=== PATIENT | male | born 1965 | race Caucasian/White ===

== ENCOUNTER 2021-02-10 09:59 | Observation (INO) | payer OTHER ==
[~2021-02-10] VITALS: Ht 182.9 cm; Wt 99.0 kg
--- NOTE | 2021-02-10 09:59 | NUR ---
PATIENT TO ROOM 14 VIA WHEELCHAIR WITH [facility] STAFF. BEDSIDE TRIAGE COMPLETED. [facility] COMPLETED. STROKE ALERT CALLED
[2021-02-10 10:37] LABS: HEMATOCRIT 47.4 % (39.0-50.0); HEMOGLOBIN 15.5 g/dl (14.0-18.0); IMMATURE GRANULOCYTES 0.1 % (0.0-5.0); MEAN CELL VOLUME 86.3 fL CALC (80.0-100.0); MEAN CORPUSCULAR HGB 28.2 pG CALC (26.0-32.0); MEAN CORPUSCULAR HGB CONC 32.7 g/dL CAL (32.0-36.0); NEUT# 8.27 thou/uL (1.82-7.42); RED BLOOD COUNT 5.49 mill/uL (4.70-6.10); RED CELL DISTRI WIDTH 12.3 % (11.5-15.5)
[2021-02-10 11:00] LABS: PROTHROMBIN TIME 10.3 SECONDS (9.0-12.5)
--- NOTE | 2021-02-10 11:02 | NUR ---
PT BACK FROM CT, ASSESSED BY NEURO, AWAITING RESULTS
[2021-02-10] MEDS ORDERED: DIPHENHYDRAMINE50 M3 PO (11:04)
[2021-02-10] MEDS ORDERED: ASPIRIN ADULT L81 M2 PO (11:07)
[2021-02-10] MEDS ORDERED: ATORVASTATIN CA80 MG PO (11:09)
[2021-02-10] MEDS ORDERED: LEVOTHYROXIN100 MC1 PO (11:10)
[2021-02-10 11:11] LABS: ALBUMIN 4.6 g/dL (3.2-5.0); ALKALINE PHOSPHATASE 99 u/l (38-126); ANION GAP 15 (6-22 (CALC)); BILIRUBIN, TOTAL 1.1 mg/dL (0.0-1.4); BUN 19 mg/dL (9-20); BUN/CREATININE RATIO 20 (12-20 (CALC)); CARBON DIOXIDE 30 mmol/l (22-30); CHLORIDE 101 mmol/l (95-108); GFR > 60 ML/MIN (>=60 (CALC)); GFR FOR AFR.AMER. > 60 ML/MIN (>=60 (CALC)); POTASSIUM 4.6 mmol/l (3.5-5.1); SGOT/AST 32 u/l (17-59); SODIUM 141 mmol/l (137-146); TOTAL PROTEIN 8.3 g/dL (6.3-8.2)
--- NOTE | 2021-02-10 12:00 | NUR ---
PT RESTING, AWAITING RESULTS WITH CALL LIGHT IN REACH
--- NOTE | 2021-02-10 13:03 | NUR ---
NO NEURO CHANGES, [facility] STILL 4
--- NOTE | 2021-02-10 14:35 | NUR ---
REPORT GIVEN TO RANJEET ROWLAND, PT LEFT IN WHEELCHAIR TO CT SCAN AND THEN FLOOR
[2021-02-10 15:45] VITALS: BP 135/84
--- NOTE | 2021-02-10 15:45 | NUR ---
REPORT FROM ER RECEIVED. PT JUST CAME UP FROM MRI FOR TESTING. PT ORIENTED TO ROOM. VITALS TAKEN AND ASSESSMENT PERFORMED. NO COMPLAINTS AT THIS TIME OTHER THAN CONTIUED RIGHT SIDED FACIAL PARALYSIS/SWELLING. PT HAS RIGHT BRACE TO LEG IN PLACE. PT COM[facility] WITH GUARDS X 2. PT GIVEN SNACKS AND WATER, STATED HE HADNT ATE ANYTHING SINCE 6PM THE NIGHT BEFORE. SN ASSURED DINNER TRAY TO COME SOON. WILL CONTINUE TO MONITOR.
[2021-02-10 19:00] VITALS: BP 169/92
--- NOTE | 2021-02-10 20:25 | NUR ---
PHYSICAL ASSESMENT COMPLETE. PT CURRENTLY DENIES PAIN OR DISCOMFORT. SCHEDULED MEDICATIONS AND PRN MEDICATION ADMINISTERED, SEE E-MAR. PT DENIES ANY NEEDS AT THIS TIME. PLAN OF CARE REVIEWED, PT DENIES QUESTIONS, VERBALIZES UNDERSTANDING. ITEMS WITHIN REACH, BED LOCKED IN LOW POSITION W/ BEDRAILS UP X2. PT SHACKLED TO THE BED WITH 2 GUARDS AT BEDSIDE. CALL FITZGERALD WITHIN REACH, AGREES TO CALL PRN.
[2021-02-11] VITALS: BP 140/77
[2021-02-11 04:00] VITALS: BP 130/73
--- NOTE | 2021-02-11 04:00 | NUR ---
PT LAYING IN BED WITH EYES CLOSED, APPEARS TO BE SLEEPING, APPEARS COMFORTABLE AND IN NO DISTRESS. RESPIRATIONS REGULAR AND UNLABORED. ITEMS REMAIN WITHIN REACH, CALL FITZGERALD REMAINS WITHIN REACH. BED REMAINS LOCKED AND IN LOW POSITION WITH BEDRAILS UP X2. WILL CONTINUE TO MONITOR.
[2021-02-11 05:28] LABS: HEMATOCRIT 43.8 % (39.0-50.0); HEMOGLOBIN 14.3 g/dl (14.0-18.0); MEAN CELL VOLUME 86.7 fL CALC (80.0-100.0); MEAN CORPUSCULAR HGB 28.3 pG CALC (26.0-32.0); MEAN CORPUSCULAR HGB CONC 32.6 g/dL CAL (32.0-36.0); RED BLOOD COUNT 5.05 mill/uL (4.70-6.10); RED CELL DISTRI WIDTH 12.3 % (11.5-15.5)
[2021-02-11 05:47] LABS: ANION GAP 12 (6-22 (CALC)); BUN 14 mg/dL (9-20); BUN/CREATININE RATIO 18 (12-20 (CALC)); CALCULATED LDLCHOLESTEROL 98 mg/dL (62-129 (CALC)); CARBON DIOXIDE 27 mmol/l (22-30); CHLORIDE 102 mmol/l (95-108); CHOLESTEROL HDL RATIO 3.3 (<4.4 (CALC)); CREATININE 0.8 mg/dL (0.7-1.3); GFR > 60 ML/MIN (>=60 (CALC)); GFR FOR AFR.AMER. > 60 ML/MIN (>=60 (CALC)); HDL CHOLESTEROL 48 mg/dL (>=40); MAGNESIUM 1.9 mg/dL (1.6-2.3); SODIUM 136 mmol/l (137-146); TOTAL CHOLESTEROL 159 mg/dl (0-199); TOTAL TRIGLYCERIDES 63 mg/dl (30-149); VLDL CHOLESTROL 13 mg/dl (8-62 (CALC))
[2021-02-11 07:35] VITALS: BP 129/77
--- NOTE | 2021-02-11 08:00 | NUR ---
PT SEEN AWAKE, ALERT, ORIENTED X 3. LUNGS CLEAR, RA. PT WITH LEFT FACIAL DROOP PER RECENT CVA. PT STATES BM TODAY. GUARDS X 2 AT BEDSIDE. PT SEEN BY DR MIRAMONTES, TO DISCHARGE THIS MORNING.
[2021-02-11 10:53] VITALS: BP 116/75
--- NOTE | 2021-02-11 11:10 | NUR ---
PT VERBALIZES UNDERSTANDING OF DC INSTRUCTIONS, TAKEN BY WHEELCHAIR TO [facility] BY GUARDS X 2. PT LEAVES IN STABLE CONDITION.
== END 2021-02-11 11:10 | disposition designated cancer center or children's hospital (05) | DRG 69 ==
LOC: ED 09:59 → ED-I 12:21 → ED 12:41 → MS2 12:42
PROVIDERS: Family Medicine; ADMIT Hospitalist; ATTEND Hospitalist
DX: G45.9 Transient cerebral ischemic attack, unspecified (principal); I69.352 Hemiplegia and hemiparesis following cerebral infarction affecting left dominant side; E03.9 Hypothyroidism, unspecified; M19.90 Unspecified osteoarthritis, unspecified site; Z79.82 Long term (current) use of aspirin; Z20.822 Contact with and (suspected) exposure to COVID-19
CPT/HCPCS: G0378; J1650; Q9967